=== PATIENT | female | born 1970 | race Caucasian/White ===

== ENCOUNTER 2018-09-04 16:28 | Emergency (ER) | payer OTHER ==
[~2018-09-04] VITALS: Ht 152.4 cm; Wt 70.3 kg
[~2018-09-04 16:28] MED LIST: ACETAMINOOPHEN-1 TAB PO; ASPIR 8181 MG PO; AUGMENTIN1 TAB.CHEW; AVELOX ABC PAC400 MG; CATAFLAM50 MG PO; CIPRO500 MG/5 M PO; CLINDAMYCIN PHO60 ML; FOLIC ACID1 MG PO; METROPOROL PO; NORVASC2.5 MG PO; NORVASC5 MG PO; POLY119PG PO; THERALITH XR T1 EACH PO; TOPROL XL50 M1; VANCOMYCIN H1 G/VIAL; ZITHROMAX TRI-500 MG PO; ZITHROMAX500 MG PO; ZOCOR PO; ZOCOR20 MG; ZOCOR20 MG PO
== END 2018-09-04 23:34 | disposition home or self-care (01) ==
LOC: ER 16:28
DX: K52.89 Other specified noninfective gastroenteritis and colitis (principal)

== ENCOUNTER 2018-10-11 08:25 | Day surgery (SDC) | payer OTHER | END 2018-10-11 14:05 | disposition home or self-care (01) | LOC: AMB-ENDOS 08:25 | DX: K64.4 Residual hemorrhoidal skin tags (principal) ==

== ENCOUNTER 2019-05-16 04:19 | Emergency (ER) | payer OTHER ==
[~2019-05-16] VITALS: Ht 154.9 cm; Wt 77.6 kg
== END 2019-05-16 14:17 | disposition home or self-care (01) ==
LOC: ER 04:19
DX: R53.81 Other malaise (principal); R50.9 Fever, unspecified

== ENCOUNTER 2019-08-07 10:05 | Outpatient (CLI) | payer OTHER | END 2019-08-07 11:55 | disposition home or self-care (01) | LOC: LAB 10:05 | DX: N61.1 Abscess of the breast and nipple (principal) ==

== ENCOUNTER → 2019-10-08 | Emergency (ER) | payer OTHER ==
[~2019-10-08] VITALS: Ht 154.9 cm; Wt 80.7 kg
== END | disposition left against medical advice (07) ==
LOC: ER 02:57
DX: Z53.20 Procedure and treatment not carried out because of patient's decision for unspecified reasons (principal)

== ENCOUNTER 2020-07-15 07:09 | Day surgery (SDC) | payer OTHER ==
[~2020-07-15 07:09] MED LIST changes: +B-100 COMPLEX100 MG PO
[2020-07-15] MEDS ORDERED: PERCOCET 5-3251 EACH PO (13:32)
[2020-07-15] MEDS ORDERED: KETO10TA2 PO (13:34)
== END 2020-07-15 18:00 | disposition home or self-care (01) ==
LOC: CIR.AMB 07:09
PROVIDERS: ATTEND Surgery
DX: K60.1 Chronic anal fissure (principal); K64.8 Other hemorrhoids; Z20.828 Contact with and (suspected) exposure to other viral communicable diseases